=== PATIENT | male | born 1985 | race Caucasian/White ===

== ENCOUNTER 2021-05-01 14:47 | Emergency (ER) | payer BC ==
[2021-05-01] MEDS ORDERED: Sodium Chloride 0.9% 10 ML Syringe FLUSH PRN (15:14)
[2021-05-01] MEDS ORDERED: Sodium Chloride 0.9% 1,000 ML IV ONE (15:20)
--- NOTE | 2021-05-01 15:26 | EDM.PDOC ---
ED HPI GENERAL MEDICAL PROBLEM - General Chief Complaint: Respiratory Problem Stated Complaint: SOB/FATIGUE/NOT SLEEPING/STRESS Time Seen by Provider: 05/01/21 15:13 Source of Information: Reports: Patient, RN Notes Reviewed History Limitations: Reports: No Limitations - History of Present Illness INITIAL COMMENTS - FREE TEXT/NARRATIVE: Patient is a 35-year-old male who presents to the ER for the evaluation of his multiple complaints. Patient states he has been having issues with shortness of breath/fatigue/not feeling well, and increased stress for the last few days. Notes that last night this did get quite a bit worse and he was not able to sleep much at all. He states he could not lay flat because he was worried he would not catch his breath. States that everything seems to worsen after he eats, he states that he just cannot catch a deep breath after he eats much at all. He does have a cough, that is productive of some yellow type sputum. He has had no fevers or chills, nausea/vomiting/diarrhea. His notes that family does have a history of high blood pressure, he does not have a regular care provider and he is not on any medications for blood pressure at this time. Vitals at time of triage do demonstrate an elevated pulse of 120, temperature 97.1 F, respiratory rate of 16, elevated blood pressure of 213/121, but this did come down into 170 systolically when I was in the room, O2 sats of 100% on room air. - Related Data Allergies Allergy/AdvReac Type Severity Reaction Status Date / Time No Known Allergies Allergy Verified 05/01/21 14:58 Home Meds: Home Meds . [No Known Home Meds] 05/01/21 [History] Past Medical History - Past Health History Medical/Surgical History: Denies Medical/Surgical History Social & Family History - Tobacco Use Tobacco Use Status *Q: Never Tobacco User Second Hand Smoke Exposure: No - Caffeine Use Caffeine Use: Reports: Coffee - Recreational Drug Use Recreational Drug Use: No ED ROS GENERAL - Review of Systems Review Of Systems: Comprehensive ROS is negative, except as noted in HPI. ED EXAM, GENERAL - Physical Exam Exam: See Below Exam Limited By: No Limitations General Appearance: Alert, WD/WN, No Apparent Distress, Anxious (slight generalized) Respiratory/Chest: No Respiratory Distress, Lungs Clear, Normal Breath Sounds, No Accessory Muscle Use, Chest Non-Tender Cardiovascular: Normal Peripheral Pulses, Regular Rate, Rhythm, No Edema Peripheral Pulses: 2+: Radial (L), Radial (R) Extremities: Normal Inspection, Normal Capillary Refill Neurological: Alert, Oriented, Normal Cognition, No Motor/Sensory Deficits Psychiatric: Normal Affect, Normal Mood, Anxious Skin Exam: Warm, Dry, Intact, Normal Color, No Rash #1 Interpretation EKG Date: 05/01/21 Time: 15:10 Rhythm: Other (sinus tach) Rate (Beats/Min): 114 [place]: Normal P-Wave: Present QRS: Normal ST-T: Normal QT: Normal Comparison: NA - No Prior EKG EKG Interpretation Comments: Q waves in III and avF. otherwise no obvious ischemia or acute ST changes noted, reviewed by myself and Dr. Bertrand. Course - Vital Signs Last Recorded V/S: Last Vital Signs Temp 97.1 F 05/01/21 14:56 Pulse 120 H 05/01/21 14:56 Resp 16 05/01/21 14:56 BP 213/121 H 05/01/21 14:56 Pulse Ox 100 05/01/21 14:56 - Orders/Labs/Meds Orders: Active Orders 24 hr Category Date Time Status EKG 12 Lead [EKG Documentation Completion] [RC] STAT Care 05/01/21 15:04 Active Peripheral IV Care [RC] . DIRECTED Care 05/01/21 15:14 Ordered Chest 2V [CR] Stat Exams 05/01/21 15:14 Ordered Sodium Chloride 0.9% [Saline Flush] Med 05/01/21 15:14 Ordered 10 ml FLUSH ASDIRECTED PRN Peripheral IV Insertion Adult [OM.PC] Stat Oth 05/01/21 15:14 Ordered Medication Orders Sodium Chloride (Sodium Chloride 0.9% 10 Ml Syringe) 10 ml FLUSH ASDIRECTED PRN PRN Reason: Keep Vein Open Last Admin: 05/01/21 16:03 Dose: 10 ml Documented by: MURALI Labs: Laboratory Tests 05/01/21 05/01/21 05/01/21 Range/Units 15:40 15:40 15:40 WBC 10.51 H (4.23-9.07) K/mm3 RBC 4.96 (4.63-6.08) M/mm3 Hgb 15.2 (13.7-17.5) gm/dl Hct 44.6 (40.1-51.0) % MCV 89.9 (79.0-92.2) fl MCH 30.6 (25.7-32.2) pg MCHC 34.1 (32.2-35.5) g/dl RDW Std Deviation 42.2 (35.1-43.9) fL Plt Count 294 (163-337) K/mm3 MPV 9.6 (9.4-12.3) fl Neut % (Auto) 69.6 H (34.0-67.9) % Lymph % (Auto) 19.1 L (21.8-53.1) % [place] % (Auto) 9.8 (5.3-12.2) % Eos % (Auto) 1.0 (0.8-7.0) Baso % (Auto) 0.2 (0.1-1.2) % Neut # (Auto) 7.32 H (1.78-5.38) K/mm3 Lymph # (Auto) 2.01 (1.32-3.57) K/mm3 [place] # (Auto) 1.03 H (0.30-0.82) K/mm3 Eos # (Auto) 0.10 (0.04-0.54) K/mm3 Baso # (Auto) 0.02 (0.01-0.08) K/mm3 PT 10.6 (9.7-12.0) SECONDS INR 0.99 APTT 26.5 (21.7-31.4) SECONDS D-Dimer, Quantitative (0.19-0.50) mg/L Sodium 141 (136-145) mEq/L Potassium 3.7 (3.5-5.1) mEq/L Chloride 103 (98-107) mEq/L Carbon Dioxide 27 (21-32) mEq/L Anion Gap 14.7 (5-15) BUN 14 (7-18) mg/dL Creatinine 1.3 (0.7-1.3) mg/dL Est Cr Clr Drug Dosing 87.88 mL/min Estimated GFR (MDRD) > 60 (>60) mL/min BUN/Creatinine Ratio 10.8 L (14-18) Glucose 145 H (70-99) mg/dL Calcium 9.5 (8.5-10.1) mg/dL Magnesium 2.0 (1.8-2.4) mg/dL Total Bilirubin 0.3 (0.2-1.0) mg/dL AST 21 (15-37) U/L ALT 36 (16-63) U/L Alkaline Phosphatase 102 (46-116) U/L Troponin I < 0.017 (0.00-0.056) ng/mL NT-Pro-B Natriuret Pep (0-125) pg/mL Total Protein 8.2 (6.4-8.2) g/dl Albumin 3.9 (3.4-5.0) g/dl Globulin 4.3 gm/dL Albumin/Globulin Ratio 0.9 L (1-2) 05/01/21 05/01/21 Range/Units 15:40 15:40 WBC (4.23-9.07) K/mm3 RBC (4.63-6.08) M/mm3 Hgb (13.7-17.5) gm/dl Hct (40.1-51.0) % MCV (79.0-92.2) fl MCH (25.7-32.2) pg MCHC (32.2-35.5) g/dl RDW Std Deviation (35.1-43.9) fL Plt Count (163-337) K/mm3 MPV (9.4-12.3) fl Neut % (Auto) (34.0-67.9) % Lymph % (Auto) (21.8-53.1) % [place] % (Auto) (5.3-12.2) % Eos % (Auto) (0.8-7.0) Baso % (Auto) (0.1-1.2) % Neut # (Auto) (1.78-5.38) K/mm3 Lymph # (Auto) (1.32-3.57) K/mm3 [place] # (Auto) (0.30-0.82) K/mm3 Eos # (Auto) (0.04-0.54) K/mm3 Baso # (Auto) (0.01-0.08) K/mm3 PT (9.7-12.0) SECONDS INR APTT (21.7-31.4) SECONDS D-Dimer, Quantitative 0.38 (0.19-0.50) mg/L Sodium (136-145) mEq/L Potassium (3.5-5.1) mEq/L Chloride (98-107) mEq/L Carbon Dioxide (21-32) mEq/L Anion Gap (5-15) BUN (7-18) mg/dL Creatinine (0.7-1.3) mg/dL Est Cr Clr Drug Dosing mL/min Estimated GFR (MDRD) (>60) mL/min BUN/Creatinine Ratio (14-18) Glucose (70-99) mg/dL Calcium (8.5-10.1) mg/dL Magnesium (1.8-2.4) mg/dL Total Bilirubin (0.2-1.0) mg/dL AST (15-37) U/L ALT (16-63) U/L Alkaline Phosphatase (46-116) U/L Troponin I (0.00-0.056) ng/mL NT-Pro-B Natriuret Pep 7 (0-125) pg/mL Total Protein (6.4-8.2) g/dl Albumin (3.4-5.0) g/dl Globulin gm/dL Albumin/Globulin Ratio (1-2) Meds: Medications Generic Name Dose Route Start Last Admin Trade Name Freq PRN Reason Stop Dose Admin Sodium Chloride 10 ml 05/01/21 15:14 05/01/21 16:03 Sodium Chloride 0.9% 10 Ml Syringe FLUSH 10 ml ASDIRECTED PRN Administration Keep Vein Open Discontinued Medications Generic Name Dose Route Start Last Admin Trade Name Freq PRN Reason Stop Dose Admin Sodium Chloride 1,000 mls @ 999 mls/hr 05/01/21 15:20 05/01/21 15:44 Normal Saline IV 05/01/21 16:20 999 mls/hr ONETIME ONE Administration - Re-Assessments/Exams Free Text/Narrative Re-Assessment/Exam: 05/01/21 15:24 Patient presents to the ER for his SOB and other general symptoms. He does have elevated blood pressure, likely could be part of the equation here. EKG is demonstrative of sinus tach with a rate of 114 bpm. We will go ahead and get basic labs and a chest x-ray for further evaluation as well. 05/01/21 16:50 The patient's heart rate has improved, and is now down to 9697, and his blood pressure is also improved and is down to 157/103. The patient's laboratory evaluation is pretty nondiagnostic, white cell count mildly elevated at 10.5 with 69% neutrophils on the auto differential, CMP shows no remarkable abnormalities troponin is undetectably low. Chest x-ray was reviewed by myself and Dr. Bertrand, there is no major concern for any sort of consolidation at today's visit, there was an area that could be atelectasis versus other on the lateral films. I will go over the findings with the patient, I do believe some of the fatigue and other generalized symptoms could be due to elevated blood pressure that has been untreated. But there are no major findings to try to treat for today's purposes. Departure - Departure Time of Disposition: 17:11 Disposition: Home, Self-Care 01 Condition: Good Clinical Impression: Shortness of breath at rest, Heartburn - Discharge Information *PRESCRIPTION DRUG MONITORING PROGRAM REVIEWED*: No *COPY OF PRESCRIPTION DRUG MONITORING REPORT IN PATIENT OBI: No Instructions: Heartburn, [id number], Shortness of Breath, Adult, [id number] Referrals: PCP,None [Primary Care Provider] - Forms: ED Department Discharge Additional Instructions: You were evaluated in the ER today for your shortness of breath. Laboratory evaluation was taken at today's visit, and all of the testing was fairly unremarkable, EKG did not show any signs of heart attacks at today's visit. Chest x-ray was also not concerning for any underlying pneumonia or bacterial issues in your lungs. As you indicated you have some chest pressure after you eat, which could mean that you have reflux or heartburn issues, recommend you trial Prilosec, or omeprazole [id number] over the next few days to see if this helps relieve some of the symptoms, please note this medication can take up to 72 hours to start providing effect. Again this is [id number] and can be obtained in any place like [employer] or pharmacies. Your blood pressure was still elevated while being in the ER, recommend you get a blood pressure cuff, and monitor your blood pressure 2 times a day for a while, and keep note of the numbers to discuss with a primary care provider. Please call the [place] clinic on Monday, to establish care, and get an HIM release for his ER visit for today's purposes. Do not hesitate to return to the ER at any time if symptoms change or worsen. Sepsis Event Note (ED) - Evaluation Sepsis Screening Result: No Definite Risk - Focused Exam Vital Signs: Vital Signs Temp Pulse Resp BP Pulse Ox 05/01/21 14:56 97.1 F 120 H 16 213/121 H 100 - My Orders Last 24 Hours: My Active Orders 05/01/21 15:04 EKG 12 Lead [EKG Documentation Completion] [RC] STAT 05/01/21 15:14 Peripheral IV Care [RC] . DIRECTED Chest 2V [CR] Stat Sodium Chloride 0.9% [Saline Flush] 10 ml FLUSH ASDIRECTED PRN Peripheral IV Insertion Adult [OM.PC] Stat - Assessment/Plan Last 24 Hours: My Active Orders 05/01/21 15:04 EKG 12 Lead [EKG Documentation Completion] [RC] STAT 05/01/21 15:14 Peripheral IV Care [RC] . DIRECTED Chest 2V [CR] Stat Sodium Chloride 0.9% [Saline Flush] 10 ml FLUSH ASDIRECTED PRN Peripheral IV Insertion Adult [OM.PC] Stat
--- NOTE | 2021-05-01 20:54 | CR ---
Chest: PA and lateral views of the chest were obtained. Comparison: No prior chest imaging is available. Heart size and mediastinum are normal. Lungs are clear with no acute parenchymal change. Bony structures are unremarkable. Impression: 1. Nothing acute is seen on 2 view chest x-ray. Diagnostic code #1
== END 2021-05-01 17:50 | disposition home or self-care (01) ==
LOC: JD.ED 14:47
DX: R06.02 Shortness of breath (principal); R12 Heartburn
CPT/HCPCS: 36415; 71046; 80053; 83735; 83880; 84484; 85025; 85379; 85610; 85730; 93005; 99285; J7030; 93010; 99284